=== PATIENT | female | born 1950 | race Caucasian/White ===

== ENCOUNTER 2016-06-24 14:01 | Outpatient (CLI) | payer MEDICARE ==
[2016-06-24 14:39] LABS: #Basophils 0.1 thou/uL (0.0-0.2); #Eosinphils 0.1 thou/uL (0.0-0.7); #Lymphocytes 1.6 thou/uL (1.20-3.40); #Monocytes 0.3 thou/uL (0.11-0.59); #Neutrophils 2.2 thou/uL (1.40-6.50); %Basophils 1.7 % (0.0-1.0); %Eosinophils 2.4 % (0.0-10.0); %Lymphocytes 36.8 % (21.0-51.0); %Monocytes 7.2 % (0.0-10.0); Hemoglobin 13.2 g/dL (12.0-16.0); Mean Corpuscular HGB CONC 33.4 g/dL (32.0-36.0); Mean Corpuscular Hemoglobin 30.4 pg (27.0-31.0); Mean Corpuscular Volume 90.9 fl (81.0-99.0); Mean Platelet Volume 8.9 fL (7.4-10.4); Platelet Count 182 thou/uL (130-400); RBC Distribution Width 12.9 % (11.5-14.5); Red Blood Cell (RBC) Count 4.35 mill/uL (4.20-5.40); White Blood Cell (WBC) Count 4.3 thou/uL (4.8-10.8)
[2016-06-24 14:55] LABS: ALT (SGPT) 23 U/L (0-55); AST (SGOT) 25 U/L (5-34); Albumin 4.7 g/dL (3.4-4.8); Alkaline Phosphatase 67 U/L (40-150); Anion Gap 14 mmol/L (10-20); BUN (Urea Nitrogen) 11 mg/dL (9.8-20.1); Bilirubin, Total 0.5 mg/dL (0.2-1.2); Calc. Creatinine Clearance 0 mL/min (70-130); Carbon Dioxide 30 mmol/L (23-31); Cardiac Risk 6.8 (Less than 4.5); Chloride 101 mmol/L (98-107); Cholesterol 300 mg/dL (< 200 Desired); Estimated GFR-MDRD 58; Globulin 2.8 g/dL (2.4-3.5); Glucose 97 mg/dL (80-115); HDL Cholesterol 44 mg/dL (>60 Neg Risk); Potassium 4.5 mmol/L (3.5-5.1); Protein, Total 7.5 g/dL (5.8-8.1); Sodium 140 mmol/L (136-145); Triglycerides 536 mg/dL (Less than 150)
== END 2016-06-24 14:02 | disposition home or self-care (01) ==
LOC: MADLABBHPM 14:01
PROVIDERS: ATTEND Family Medicine
DX: E78.5 Hyperlipidemia, unspecified (principal); E03.9 Hypothyroidism, unspecified
CPT/HCPCS: 36415; 80053; 80061; 84443; 85025

== ENCOUNTER 2021-10-27 13:54 | Emergency (ER) | payer OTHER ==
[2021-10-27] MEDS ORDERED: Amoxicillin/Potassium Clav 875 MG TAB ONE (14:16)
[2021-10-27] MEDS ORDERED: Rabies Vaccine Human 2.5 UNITS VIAL ONE (14:43)
[2021-10-27] MEDS ORDERED: Bacitracin 1 PK ONE (15:50)
== END 2021-10-27 16:00 | disposition home or self-care (01) ==
LOC: MADERS 13:54
DX: S61.511A Laceration without foreign body of right wrist, initial encounter (principal); I25.2 Old myocardial infarction; E03.9 Hypothyroidism, unspecified; J44.9 Chronic obstructive pulmonary disease, unspecified; I25.10 Atherosclerotic heart disease of native coronary artery without angina pectoris; I11.0 Hypertensive heart disease with heart failure; I50.9 Heart failure, unspecified; F17.210 Nicotine dependence, cigarettes, uncomplicated; W54.0XXA Bitten by dog, initial encounter; Z23 Encounter for immunization; Z95.5 Presence of coronary angioplasty implant and graft; Z79.899 Other long term (current) drug therapy
CPT/HCPCS: 90375; 90471; 90675; 96372